=== PATIENT | male | born 1975 | race African-American/Black ===

== ENCOUNTER 2017-11-23 22:36 | Emergency (ER) | payer OTHER | END 2017-11-23 22:50 | disposition home or self-care (01) | LOC: SCSER 22:36 | DX: L73.9 Follicular disorder, unspecified (principal); K21.9 Gastro-esophageal reflux disease without esophagitis; F41.9 Anxiety disorder, unspecified; Z79.899 Other long term (current) drug therapy | CPT/HCPCS: 99283 ==

== ENCOUNTER 2017-12-10 23:08 | Emergency (ER) | payer OTHER | END 2017-12-11 01:30 | disposition home or self-care (01) | LOC: ERS 23:08 | DX: Z03.89 Encounter for observation for other suspected diseases and conditions ruled out (principal); E78.00 Pure hypercholesterolemia, unspecified; K21.9 Gastro-esophageal reflux disease without esophagitis; F41.9 Anxiety disorder, unspecified | CPT/HCPCS: 99283 ==

== ENCOUNTER 2018-09-21 23:22 | Emergency (ER) | payer OTHER | END 2018-09-21 23:43 | disposition home or self-care (01) | LOC: SCSER 23:22 | DX: R68.84 Jaw pain (principal); F41.9 Anxiety disorder, unspecified; K02.9 Dental caries, unspecified; K21.9 Gastro-esophageal reflux disease without esophagitis; Z87.891 Personal history of nicotine dependence; Z79.899 Other long term (current) drug therapy | CPT/HCPCS: 99282 ==

== ENCOUNTER 2019-10-14 22:28 | Emergency (ER) | payer OTHER | END 2019-10-14 23:14 | disposition home or self-care (01) | LOC: SCSER 22:28 | DX: R20.0 Anesthesia of skin (principal); E78.5 Hyperlipidemia, unspecified; I10 Essential (primary) hypertension; K21.9 Gastro-esophageal reflux disease without esophagitis; F20.9 Schizophrenia, unspecified; F41.9 Anxiety disorder, unspecified; Z87.891 Personal history of nicotine dependence; Z79.899 Other long term (current) drug therapy | CPT/HCPCS: 99283 ==

== ENCOUNTER 2020-10-07 18:00 | Outpatient (CLI) | payer OTHER | END 2020-10-07 18:01 | disposition home or self-care (01) | LOC: SLEEPLAB 18:00 | PROVIDERS: ATTEND Family Medicine | DX: G47.33 Obstructive sleep apnea (adult) (pediatric) (principal); R53.83 Other fatigue; E66.9 Obesity, unspecified; R06.83 Snoring; F41.9 Anxiety disorder, unspecified; G47.00 Insomnia, unspecified; I10 Essential (primary) hypertension | CPT/HCPCS: 95806 ==

== ENCOUNTER 2020-11-06 19:30 | Outpatient (CLI) | payer OTHER | END 2020-11-06 19:31 | disposition home or self-care (01) | LOC: SLEEPLAB 19:30 | PROVIDERS: ATTEND Family Medicine | DX: G47.33 Obstructive sleep apnea (adult) (pediatric) (principal); G47.00 Insomnia, unspecified; I11.9 Hypertensive heart disease without heart failure; R53.83 Other fatigue; E66.9 Obesity, unspecified; R06.83 Snoring; F41.9 Anxiety disorder, unspecified; Z68.41 Body mass index [BMI] 40.0-44.9, adult | CPT/HCPCS: 95811 ==

== ENCOUNTER 2021-09-03 12:48 | Outpatient (CLI) | payer OTHER | END 2021-09-03 12:49 | disposition home or self-care (01) | LOC: DTY/OP 12:48 | PROVIDERS: ATTEND Family Medicine | DX: R73.03 Prediabetes (principal); Z71.3 Dietary counseling and surveillance | CPT/HCPCS: 97802 ==